=== PATIENT | male | born 1975 | race Caucasian/White ===

== ENCOUNTER 2025-02-06 16:34 | Inpatient (IN) | payer OTHER, SELFPAY ==
--- OUTSIDE RECORDS SUMMARY | 2025-02-01 11:49 | XMS_ITS | Encounter Summary ---
Author Organization Keisha Miguel [facility] Address [address] [place] [address] Care Team Providers Care Train Control Technician Name Role Phone Julio Prado MD Primary Care Provider + [phone] Sheldon Mercer MD Unavailable + [phone] Edwin Rojas MD Unavailable [phone] Reason for Visit * Reason Comments Hip Pain Encounter Details Date Type Department Care Team (Latest Contact Info) Description 02/01/2025 12:49 PM EDT - 02/01/2025 1:52 PM EDT Hospital Encounter [facility] [address] Johnie Horner MD [address] [place] [id number] Acute pain of left knee (Primary Dx) Discharge Disposition: Home or Self Care Social History Tobacco Use Types Packs/Day Years Used Date Smoking Tobacco: Never Smokeless Tobacco: Never Alcohol Use Standard Drinks/Week Comments Never 0 (1 standard drink = 0.6 oz pur e alcohol) Humiliation, Afraid, Rape, and Kick questionnair e Answer Date Recorded Within the last year, have y ou been afraid of your partner or ex-partner? Patient declined 02/01/2025 Emotionally Abused Not on file 02/01/2025 Physically Abused Not on file 02/01/2025 Sexually Abused Not on file 02/01/2025 Overall Financial Resource Strain (CARDIA) Answe r Date Recorded How hard is it for you to pa y for the very basics like food, housing, medical care, and heating? Patient declined 02/01/2025 Hunger Vital Sign Answer Date Recorded Within the past 12 months, y ou worried that your food would run out before you got the money to buy more. Patient declined Ran Out of Food in the Last Year Not on file 02/01/2025 PRAPARE - Transportation Answer Date Re corded In the past 12 months, has l ack of transportation kept you from medical appointments or from getting medications? Patient declined 02/01/2025 In the past 12 months, has l ack of transportation kept you from meetings, work, or from getting things needed for daily living? Patient declined 02/01/2025 Housing Stability Vital Sign Answer Mumtaz e Recorded In the last 12 months, was t here a time when you were not able to pay the mortgage or rent on time? Patient declined 02/02/20 25 Number of Times Moved in the Last Year Not on fi le 02/01/2025 [facility] or living in a usp (including now)? Patient declined 02/01/2025 [facility] Utilities Answer Date Recorded In the past 12 months has th e [employer], gas, oil, or water [employer] threatened to shut off services in your home? Patient declined 02/01/2025 Food Insecurity Answer Date Recorded Within the past 12 months, y ou worried that your food would run out before you got the money to buy more. Patient declined Ran Out of Food in the Last Year Not on file 02/01/2025 Intimate Partner Violence Answer Date R ecorded Emotionally Abused Not on file 02/01/2025 Within the last year, have y ou been afraid of your partner or ex-partner? Patient declined 02/01/2025 Physically Abused Not on file 02/01/2025 Sexually Abused Not on file 02/01/2025 Housing Stability Answer Date Recorded Unstable Housing in the Last Year Not on file 02/01/2025 In the last 12 months, was t here a time when you were not able to pay the mortgage or rent on time? Patient declined 02/02/20 25 Number of Places Lived in the Last Year Not on f ile 02/01/2025 Sex and Gender Information Value Date Recorded Sex Assigned at Male 08/19/2021 3:16 PM EDT Legal Sex Male 3:46 AM EST Gender Identity Male 08/19/2021 3:16 PM EDT Sexual Orientation Not on file documented as of this encounter Last Filed Vital Signs Vital Sign Reading Time Taken Comments Blood Pressure 156/97 02/01/2025 12:44 PM EDT Pulse 105 02/01/2025 12:44 PM EDT Temperature 35.8 C (96.5 F) 02/01/2025 12:44 PM EDT Respiratory Rate 20 02/01/2025 12:44 PM EDT Oxygen Saturation 97% 02/01/2025 12:44 PM EDT Inhaled Oxygen Concentration - - Weight - - Height - - Body Mass Index - - documented in this encounter Discharge Instructions * Discharge Instructions* Johnie Horner MD - 02/01/2025 1:02 PM EDT fungal infection of the feet is called tinea pedis. There are [id number] Azole formulationssuch as clotrimazole which if used for 2 to 3 weeks (use after areas go away) are very effective. [place] not see this rash but sometimes itching occurs before the the rash Tinea are very common result of warm moist environments so make sure to air dry feet and change wetsocks High rate of recurrence so if recurs start reusing Xrays show intact hardware of knee without fracture or loosening . For pain and swelling: take Ibuprofen 600mg every 6 hours (watch for stomach irritation, black/bloody stools; if present, stop taking and seek medical attention). Can also take tylenol every 4 hours. Ice for 20 minutes at a time every couple hours first 2-3 days after injury and then after aggravating activity. Elevate as much as possible first 2-3 days to minimize swelling. documented in this encounter Medications at Time of Discharge clotrimazole (LOTRIMIN AF) 1 % cream Apply to affected area (toes) 2 times daily 2815 g 02/01/2025 ibuprofen (MOTRIN) 600 MG tablet Take 1 tablet (600 mg total) by mouth every 6 hours as needed for pain or fever for up to 30 doses. 30 tablet 02/01/2025 ondansetron (ZOFRAN) 4 MG tablet Take 1 tablet (4 mg total) by mouth every 8 hours as needed for nausea. 5 tablet 06/03/2023 documented as of this encounter ED Notes * Catherine Ragland RN - 02/01/2025 12:42 PM EDT L hip pain pain - chronic. Pt cannot remember if he's had a recent injury * Johnie Horner MD - 02/01/2025 12:36 PM EDT Date of service: 02/01/2025 This is a Established Patient encounter. URGENT CARE ENCOUNTER CHIEF COMPLAINT Chief Complaint Patient presents with Hip Pain HPI Harsh Arciniega is a 49 y.o. male Pt with schizoaffective d/o and OA s/p L knee arthroplasty who presents with left knee pain. Patient very guarded with questions deflecting several times when asked if there is been a trauma and how long the pain has been present. Also concerned about toe fungus and possibly mold. He admits he travels around and stays overnight in lots of places . REVIEW OF SYSTEMS See HPI for further details. All other systems reviewed and are negative. PAST MEDICAL HISTORY Past Medical History: No date: Anxiety 05/29/2020: Closed displaced bicondylar fracture of left tibia No date: COVID-19 06/07/2020: Osteoarthritis of left knee SOCIAL HISTORY Social History[1] FAMILY HISTORY Family History[2] SURGICAL HISTORY Past Surgical History[3] CURRENT MEDICATIONS Patient Medication List Previous Medications ONDANSETRON (ZOFRAN) 4 MG TABLET ALLERGIES Allergies[4] PHYSICAL EXAM VITAL SIGNS: ED Triage Vitals [02/01/25 1244] Triage Vitals Group BP (!) 156/97 Heart Rate (!) 105 Resp 20 Temp (!) 96.5 ??F (35.8 ??C) SpO2 97 % Weight Height 0-10 Pain Score 10 Mcghee-Terrazas FACES Pain Rating Constitutional: 49-year-old male very guardedhead: NC/AT Eyes: Pupils equal, conjunctiva normal. HENT: Atraumatic, oropharynx moist. Neck supple. Respiratory: No respiratory distress, normal breath sounds. Cardiovascular: Normal rate, normal rhythm, no murmurs, no gallops, no rubs. Musculoskeletal: Left knee: Vertical scar consistent with total knee replacement. Able to extend lower leg. Valgus varus stable. Minimal joint line tenderness. No skin changes. Bilateral feet dry skin no obvious tinea. Skin: Warm, dry Neurologic: Alert; conversant no focal deficits. RADIOLOGY XR Knee 3 VW Left Result Date: 02/01/2025 EXAM DESCRIPTION: XR KNEE 3 VW LEFT CLINICAL HISTORY: 49 y/o M hx arthroplasty with pain unclear iftrauma; COMPARISON: None. TECHNIQUE: AP, lateral and axial views of the left knee were taken. FINDINGS: There is a total knee arthroplasty. No perihardware lucency or periprosthetic fracture is identified at this time. No significant joint effusion. Total knee arthroplasty without evidence of hardware complication by radiograph. INCIDENTAL FINDINGS WHICH MAY REQUIRE FOLLOW-UP: None. Contemporaneously viewed ED COURSE & MEDICAL DECISION MAKING Pertinent Labs and/or Imaging studies reviewed. (See chart for details) Nsaids. Clinical Impression 1. Acute pain of left knee ED Disposition ED Disposition Discharge Condition -- Comment -- ED Prescriptions Medication Sig Dispense Start Date End Date Auth. Provider ibuprofen (MOTRIN) 600 MG tablet Take 1 tablet (600 mg total) by mouth every 6 hours as needed for pain or fever for up to 30 doses. 30 tablet 02/01/2025 -- Johnie Jose Luis Horner MD clotrimazole (LOTRIMIN AF) 1 % cream Apply to affected area (toes) 2 times daily 2,815 g 02/01/2025-- Johnie Jose Luis Horner MD ED Discharge Instructions fungal infection of the feet is called tinea pedis. There are zfjd-lmx-eiqnjrp Azole formulationssuch as clotrimazole which if used for 2 to 3 weeks (use after areas go away) are very effective. [place] not see this rash but sometimes itching occurs before the the rash Tinea are very common result of warm moist environments so make sure to air dry feet and change wetsocks High rate of recurrence so if recurs start reusing Xrays show intact hardware of knee without fracture or loosening . For pain and swelling: take Ibuprofen 600mg every 6 hours (watch for stomach irritation, black/bloody stools; if present, stop taking and seek medical attention). Can also take tylenol every 4 hours. Ice for 20 minutes at a time every couple hours first 2-3 days after injury and then after aggravating activity. Elevate as much as possible first 2-3 days to minimize swelling. [1] Social History Socioeconomic History Marital status: Single Tobacco Use Smoking status: Never Smokeless tobacco: Never Vaping Use Vaping status: Never Used Substance and Sexual Activity Alcohol use: Never Drug use: Never Sexual activity: Yes Partners: Female [2] Family History Problem Relation Name Age of Onset Coronary artery disease Mother Coronary artery disease Father [3] Past Surgical History: Procedure Laterality Date REPLACEMENT TOTAL KNEE Left 2020 COLONOSCOPY N/A 06/30/2022 Surgeon: Julien Shane MD; Location: [facility] [place]; Service: Gastroenterology; Laterality: N/A; [4] No Known Allergies Johnie Horner MD 02/01/25 1347 documented in this encounter Plan of Treatment Not on file documented as of this encounter Procedures Procedure Name Priority Date/Time Associated Diagnosis Comments XR KNEE 3 VW LEFT STAT 02/01/2025 1:1 2 PM EDT documented in this encounter Results * XR Knee 3 VW Left (02/01/2025 1:12 PM EDT) Anatomical Region Laterality Modality Knee Left Digital Radiogra phy 02/01/2025 1:22 PM EDT Impressions 02/01/2025 1:23 PM EDT Total knee arthroplasty without evidence of hardware complication by radiograph. INCIDENTAL FINDINGS WHICH MAY REQUIRE FOLLOW-UP: None. Narrative 02/01/2025 1:23 PM EDT EXAM DESCRIPTION: XR KNEE 3 VW LEFT CLINICAL HISTORY: 49 y/o M hx arthroplasty with pain unclear if trauma; COMPARISON: None. TECHNIQUE: AP, lateral and axial views of the left knee were taken. FINDINGS: There is a total knee arthroplasty. No perihardware lucency or periprosthetic fracture is identified at this time. No significant joint effusion. Procedure Note Felix Burr DO - 02/01/2025 EXAM DESCRIPTION: XR KNEE 3 VW LEFT CLINICAL HISTORY: 49 y/o M hx arthroplasty with pain unclear if trauma; COMPARISON: None. TECHNIQUE: AP, lateral and axial views of the left knee were taken. FINDINGS: There is a total knee arthroplasty. No perihardware lucency or periprosthetic fracture is identified at this time. No significant joint effusion. IMPRESSION: Total knee arthroplasty without evidence of hardware complication by radiograph. INCIDENTAL FINDINGS WHICH MAY REQUIRE FOLLOW-UP: None. us Johnie Horner MD IMG DIAGNOSTIC IMAGING ORDERAB LES Final Result documented in this encounter Visit Diagnoses Diagnosis Acute pain of left knee- Primary documented in this encounter Care Teams Train Control Technician Relationship Specialty Start Date End Date Julio Prado MD [facility] [address] [facility] ~ [address] [place] [address] PCP - General Internal Medicine 03/18/23 Edwin Rojas MD [facility] [address] [place] [id number] PCP - Insurance Assigned PCP 02/01/25 Sheldon Mercer MD [facility] [address] ~ [address] [place] [address] Referring Physician Colorectal Surgery 03/31/23 documented as of this encounter
--- OUTSIDE RECORDS SUMMARY | 2025-02-01 14:28 | XMS_ITS | Encounter Summary ---
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 Medications: Scheduled Medications[2] Current PRN: PRN Medications[3] Allergies: Patient has no known allergies. Substance Use History Alcohol: Substance and Sexual Activity Alcohol Use Never In the past 12 months,have you had 5 or more drinks(men)/4 or more drinks (women) containing alcohol in one day?: No Tobacco: reports that he has never smoked. He has never used smokeless tobacco. E-Cigarettes/Vaping Questions Responses E-Cigarette/Vaping Use Never User Passive Exposure No Other: reports no history of drug use. Prescription Medications: In the past 12 months,have you used any prescription medications just for the feeling, more than prescribed or that were no prescribed for you?: No Substances: In the past 12 months, have you used any drugs?: Yes Drugs used:: Marijuana Medical and Psychiatric Consequences: Psychosocial Consequences: Social History: The patient has an address in [place], although has a hx of traveling around and staysovernight in lots of places . It is unclear if the patient has family, or if he currently works. Socioeconomic History Marital status: Single Employment Status: Not Employed Type of Residence: Private residence Children?: (Unable to assess) History: History [place] status: No Personal History: reports being sexually active and has had partner(s) who are female. Family History: Family History[4] Family history of psychiatric illness?: (Unable to assess) Family history of CASI?: (Unable to assess) Family history of suicidal ideation, attempt or completed suicide?: (Unable to assess) Physical Exam: Patient Vitals for the past 24 hrs: BP Temp Temp src Pulse Resp SpO2 Height Weight 02/01/25 2053 128/86 98.4 ??F (36.9 ??C) Oral 89 16 97 % -- -- 02/01/25 1534 (!) 172/91 98.6 ??F (37 ??C) -- (!) 97 17 98 % 1.829 m (6') (!) 120 kg (265 lb) Mental Status Exam: Mental Status Exam General Appearance: Appears stated age. Disheveled and mild distress. Orientation: Oriented to person, place, time and situation. Attitude and Behavior: Disengaged and guarded. Eye Contact: Eye contact poor. Language: Unable to assess. Thought Process and Associations: Disorganized. Incoherent: constricted. Thought Content: No suicidal ideation, no self-injurious ideation, no homicidal ideation and not actively hallucinating. Attention Span: Poor. Memory: Impaired recall. Fund of Knowledge: Decreased knowledge of current events and decreased knowledge of recent events. Cognition: Unable to assess. Insight: Poor. Judgment: Poor and resists help despite evidence of mental illness. Labs, Imaging & Other Studies: Laboratory: Recent lab results have been reviewed and are notable for Results for orders placed or performed during the hospital encounter of 02/01/25 (from the past 24 hours) Drug Screen, Urine Result Value Ref Range Amphetamines Screen, Urine Negative Negative Barbiturates Screen, Urine Negative Negative Benzodiazepine Screen, Urine Negative Negative Buprenorphine Screen, Urine Negative Negative Cannabinoids Screen, Urine Positive (A) Negative Cocaine Metabolite Screen, Urine Negative Negative Methadone Screen, Urine Negative Negative Methamphetamine, Urine Negative Negative Opiates Screen, Urine Negative Negative Oxycodone Screen, Urine Negative Negative TCA, Urine Negative Negative Creatinine, Ramirez Urine 33.1 No Established Reference Range mg/dL Fentanyl Screen, Urine Negative Negative Tramadol Screen, Urine Negative Negative 6-Aceytlmorphine Screen, Urine Negative Negative Phencyclidine Screen, Urine Negative Negative Fentanyl Screen, Urine Result Value Ref Range Fentanyl Screen, Urine Negative Negative Tramadol Screen, Urine Result Value Ref Range Tramadol Screen, Urine Negative Negative 6-Acetylmorphine Screen, Urine Result Value Ref Range 6-Aceytlmorphine Screen, Urine Negative Negative Basic Metabolic Panel Result Value Ref Range Sodium 141 134 - 144 mmol/L Potassium 4.6 3.2 - 5.1 mmol/L Chloride 104 97 - 109 mmol/L Total CO2/Bicarbonate 24 20 - 32 mmol/L Anion Gap 13 5 - 15 mmol/L Anion Gap BUN 18 9 - 26 mg/dL Creatinine, Blood 0.78 0.70 - 1.30 mg/dL Glucose, Blood 84 70 - 110 mg/dL Calcium 9.5 8.5 - 10.5 mg/dL Estimated GFR(CKD-EPI) 108 >=60 mL/min/BSA Plasma Toxicology Screen Result Value Ref Range Acetaminophen Result,Blood <3 (L) Therapuetic Range 10-30 ug/mL Alcohol <10 <10 mg/dL Salicylate Level, Blood <5 (L) 15 - <30 mg/dL CBC and Differential Result Value Ref Range WBC 11.59 (H) 4.00 - 11.00 K/uL RBC 4.42 4.10 - 5.60 M/uL Hemoglobin 14.4 12.7 - 16.7 g/dL Hematocrit 42.7 38.0 - 50.0 % MCH 32.6 23.0 - 37.0 pg MCHC 33.7 29.0 - 38.0 g/dL MCV 97 82 - 98 fL RDW 12.6 11.5 - 15.0 % Platelet Count 246 150 - 450 K/uL MPV 10.9 8.0 - 14.0 fL Neutrophil 71.7 % Lymphocyte 18.7 % Monocyte 8.8 % Eosinophil 0.2 % Basophil 0.3 % Immature Granulocyte (Osgood, Myelo, Promyelocyte) 0.3 % Absolute Neutrophil Count 8.31 (H) 1.50 - 7.70 K/uL Absolute Immature Granulocyte (Osgood, Myelo, Promyelocyte) 0.04 0.00 - 0.09 K/uL Absolute Lymphocyte Count 2.17 1.00 - 5.00 K/uL Absolute Monocyte Count 1.02 (H) 0.10 - 1.00 K/uL Absolute Eosinophil Count 0.02 0.00 - 0.70 K/uL Absolute Basophil Count 0.03 0.00 - 0.20 K/uL EKG: No studies were reviewed. C-SSRS Screener and SAFE-T: [place] Suicide Severity Rating Scale (C-SSRS) Screener 1) In the past month, have you wished you were or wished you could go to sleep and not wake up?: (Unable to assess) 2) In the past month, have you actually had any thoughts of killing yourself?: (Unable to assess) 6a.) Have you ever done anything, started to do anything, or prepared to do anything to end your life?: (Unable to assess) History of Psychiatric Diagnosis:: Unable to assess Family History: Unable to assess Precipitants/ Stressors/ Interpersonal: Unable to assess Change in Treatment: Unable to assess Access to lethal methods: Ask specifically about presence or absence of a firearm in the home or ease of accessing: Unable to assess Management of Suicide Risk: Because the patient is unwilling to maintain his/her safety in the community and the risks of treatment in the community outweighs its benefits, the patient will be further assessed for psychiatric inpatient level of care Assessment: Patient is a 49 y.o. male with past medical and psychiatric history as above now presents with impaired insight and judgement, patient had made disorganized statements with tangential thought process. Patient had initially asked to be discharged, but when asked his plan, the patient did not make logical statements and had plans to walk to [place]. It is unclear how the patient got to [place], although in the patients past hx, it does report he has a hx of jumping from place to place- and the patient was soaking wet, in a scuba suit, when he arrived [facility] via EMS from [facility]. This clinician was unable to assess if the patient has any current outpatient providers such as a therapist or med prescriber, family hx of mental health or substance use, or trauma hx. The patient was just at [facility] in [place] and was there from January 22 to January 31, he was held on an IEA (involuntary emergency admissions) which is equivalent to a [place] Section 12. Although, he was never transferred to a formal psychiatric facility. It is unclear if the patient has a past hx of inpatient admissions. The patient does have an address in [place], but as stated above, it is unclear if he is still currently living there, or if he is considered homeless due to travelling around and staying lots of places . The patient did test positive for Cannabinoids, no alcohol waspresent. Upon evaluation, the patient is alert and oriented x4, of stated age, disheveled and slightly malodorous. The patient sits up abruptly on his stretcher, when this clinician asks how the patient is, he states, I am hungry, I am tired, and my throat hurts . This clinician notified the patient that Iwould bring this up to the nurse. While this clinician was introducing self, the patient said that he would not further communicate, unless he had a professor of business present. The patient was educated on the process and that we would not provide a professor of business, nor were we obligated to have a professor of business present. The patient immediately laid back down, reported that he needed on and that he did not want to engage any further. At that point, due to verbal agitation on the overnight shift, this clinician exited the room. The patient has continued to agree to engage with this clinician, thus, it has been difficult toobtain information and assess mental status. In nursing report, it was mentioned that the patient had verbal agitation, as well as making delusional statements, displaying odd behaviors and reportingthat Carlos Rock was watching through the cameras . The patient was just at [facility] in [place], for concern of odd behaviors and delusional statements. This clinician attempted to speak with patients [id number], Jeet Telles, although he did notanswer and his VM was full. Due to the patients recent odd behaviors, wandering around, inability to reality test, and concern for delusional statements, the patient poses as a potential safety concern and should be evaluated further for concern of psychosis/delusional thought content. The patient would benefit from transfer to an inpatient facility for further diagnostic clarification, and stabilization. The patient meets criteria for a section 12. This was discussed with [facility] LORI Bolaños, Yonny Adhikari MD and Maximilian Durham MD who support disposition. . Recommendations: IPLOC Intervention and Stabilization Services Requested: Disposition Recommendation: Patient meets criteria for opioid use disorder (OUD): No Behavioral Health Diagnosis: F22 Delusional disorder Duration: Time Spent (min): 120 Discussed with [employer]: Yes, [employer] Name: Santiago Edwards [facility] Discussed with Medical Team: Yes . Yonny Adhikari MD and Maximilian Durham MD Signed by: Kathy Garza LCSW [1] (Not in a hospital admission) [2] haloperidoL, 15 mg, Oral, QHS LORazepam, 2 mg, Oral, QHS [3] nicotine polacrilex [4] Family History Problem Relation Name Age of Onset Coronary artery disease Mother Coronary artery disease Father documented in this encounter ED Notes * Claudia Hurtado RN - 02/05/2025 9:49 PM EST Patient describing mood as wonderful this evening. A &ox 3. Patient telling multiple staff how beautiful they are. Patient cleaning floor with toothbrush and then trying to clean toes in toiletand asking if the doctor can look at a nodule on his leg- on his leg not his nuts! Patient compliant with medications, chewing them all once and then swishing them with water in his mouth and then swallowing them. * Claudia Hurtado RN - 02/05/2025 7:19 PM EST Patient in room having a visitor. * Indiana Johnson RN - 02/05/2025 4:48 PM EST This RN assumed care of pt. Meal tray ordered. Monitoring by security ongoing. * Janneth Chanel RN - 02/04/2025 11:27 PM EST Assumed care of pt. This Rn to bedside. Pt resting with eyes closed, respirations equal and unlabored. 18 Respirations per minute. Security remains in watch. * Kelley Hsieh RN - 02/04/2025 8:20 AM EST Pt resting quietly. Allowed this RN to take VS. Calm, pleasant, interactive. Up to BR to void. Security watch maintained. Breakfast ordered. Pt asking for nicorette gum and ibuprofen for his chronic hip pain. Given both. * Katherine Carlos RN - 02/03/2025 4:56 PM EDT Evaluation completed by telepsych, bed search. Patient concerned that his belongings are moldy and that hospital has mold on ceilings, reassured patient. * Katherine Carlos RN - 02/03/2025 11:54 AM EDT Resting comfortably in room, anxious at times, able to redirect. Agreed to telepsych then changed mind stating he does not like speaking on tablet and will wait until he can talk face to face. Visit from friend was helpful in being more relaxed. * Mary Bansal RN - 02/02/2025 3:29 PM EDT Assumed care of pt at 1500. Patient standing in room watching TV at this time, calm and in behavioral control. Nicorette gum given per pt request and PRN order, see MAR. Dinner tray ordered. Pt has no further questions at this time, security watch remains in place for patient safety * eMagan Tuttle RN - 02/02/2025 11:50 AM EDT Pt resting in stretcher, eating lunch tray. Security remains at bedside for safety watch. * Hossein Garcia RN - 02/02/2025 10:14 AM EDT Rounded pt. Pt in ED stretcher lying in his left side. VS updated and documented. Pt requesting states he ate breakfast but it is not enough for him, pt requesting more food states More volume and more delicious . This RN informed pt that we can check what's on the menu. Verbalized understanding and thankful. Remains behaviorally controlled at this time. * Hossein Garcia RN - 02/02/2025 7:18 AM EDT Report received from BRANDON Lagunas. This RN assumes care at this time. * Janneth Chanel RN - 02/02/2025 6:04 AM EDT Pt declining PO Haldol and Ativan. Requesting Nicorette gum. Given by this RN. * Erica Adams RN - 02/02/2025 5:30 AM EDT This RN called to bedside. Pt stating I want to leave. I need help. [place]. This RN explained pt has been placed under a section 12 for safety and cannot leave until evaluated by . Pt was offered multiple times and declined. Pt stated I do not want to meet [employer]. I want to talk to an actual person. This RN explained understanding and he would have to wait until clinician comes in this morning. Pt stated Call 911. Call a professor of business. You are taking away my personal rights. This RN explained section 12 again. Pt continued to repeat previous statement, but makes no move to leave facility. Pt rested allison in stretcher and stated I am not talkingto you. I will talk to a professor of business. Pt moved to rm 26 incase of elopement. MD Vargas at bedside. New orders established. Pt whistling loudly, but otherwise remains in room. * Naomi Hartmann RN - 02/01/2025 10:45 PM EDT Pt refused ipad psych eval stating no thanks and rolled over in bed. Psych team and MATTHIAS Dye notified. * Naomi Hartmann RN - 02/01/2025 10:27 PM EDT Marnie RIZZO to offer pt psych evaluation via iPad. Per PA pt stated You can set it up but I won't say anything to them. This RN secure chatted behavior health. Awaiting code. Pt remains in behavior health at this time. * Naomi Hartmann RN - 02/01/2025 7:44 PM EDT Assumed care of pt. Pt moved to W30 bed due to pt's concern regarding air quality from air vent. Ptnow resting comfortably. Continued security watch. Pt asked for additional Nicorette. Pt will be offered PRN Nicorette. * Radha Meadows RN - 02/01/2025 6:48 PM EDT Patient refusing to sit in stretcher, refusing to be eval'd. CHART PICKER at bedside. Now S12. Requesting a room- charge nurse denied request. * Radha Meadows RN - 02/01/2025 3:37 PM EDT Meds placed in the pyxsis Clotrimazole 1% cream x1 Motrin 600mg bottle unopened x1 * Radha Meadows RN - 02/01/2025 3:31 PM EDT EMS from [facility] requesting an eval. Hx of schizophrenia. Was seen at [facility] earlier today for chronic hip pain. Denies SI/HI/AH/VH. * Salvador Alfonso MD - 02/01/2025 3:28 PM EDT Date of service: 02/01/2025 [facility] EMERGENCY dEPARTMENT eNCOUnter NURSING TRIAGE NOTE Triage Notes Radha Meadows RN 02/01/2025 3:33 PM EMS from [facility] requesting an eval. Hx of schizophrenia. Was seen at [facility] earlier today for chronic hip pain. Denies SI/HI/AH/VH. Triage Notes Reviewed by Provider: Aspen Brower MD 255:47 PM Previous Medical Records Reviewed: Yes History Obtained From: patient CHIEF COMPLAINT Chief Complaint Patient presents with Behavioral Health HPI Onset: Gradual Severity: Moderate Timing: Days Associated Symptoms: disorganized speech Pertinent negatives: fever, SI/HI Harsh Arciniega is a 49 y.o. male with history of schizoaffective disorder, anxiety who presents to the emergency department for behavioral health evaluation. Patient generally tangential with his speech and difficult to elicit history from. When asked patient what brings him in today patient states that he wants to be seen . When asked if he has thoughts of suicidality or homicidality he denies. He denies substance use. He denies medical concerns. Patient states he is going to walk to [place] and requesting discharge. REVIEW OF SYSTEMS Review of Systems Reason unable to perform ROS: HPI limited given current psychiatric status. Constitutional: Negative for fever. Respiratory: Negative for shortness of breath. Cardiovascular: Negative for chest pain. Psychiatric/Behavioral: Negative for suicidal ideas. The patient is nervous/anxious. All other systems reviewed and are negative. See HPI for further details. All other systems reviewed and are negative. MEDICAL HISTORY Past Medical History[1] SURGICAL HISTORY Past Surgical History[2] SOCIAL HISTORY Social History[3] CURRENT MEDICATIONS Patient Medication List Previous Medications CLOTRIMAZOLE (LOTRIMIN AF) 1 % CREAM IBUPROFEN (MOTRIN) 600 MG TABLET ONDANSETRON (ZOFRAN) 4 MG TABLET ALLERGIES Allergies[4] PHYSICAL EXAM VITAL SIGNS: ED Triage Vitals Triage Vitals Group BP 02/01/25 1534 (!) 172/91 Heart Rate 02/01/25 1534 (!) 97 Resp 02/01/25 1534 17 Temp 02/01/25 1534 98.6 ??F (37 ??C) SpO2 02/01/25 1534 98 % Actual Weight 02/01/25 1534 (!) 120 kg (265 lb) Height 02/01/25 1534 1.829 m (6') 0-10 Pain Score 02/01/25 1557 7 Mcghee-Terrazas FACES Pain Rating -- Physical Exam Vitals reviewed. Constitutional: General: He is not in acute distress. HENT: Head: Normocephalic and atraumatic. Mouth/Throat: Mouth: Mucous membranes are moist. Eyes: Extraocular Movements: Extraocular movements intact. Conjunctiva/sclera: Conjunctivae normal. Pupils: Pupils are equal, round, and reactive to light. Cardiovascular: Rate and Rhythm: Normal rate and regular rhythm. Pulmonary: Effort: Pulmonary effort is normal. Abdominal: Palpations: Abdomen is soft. Musculoskeletal: General: Normal range of motion. Cervical back: Normal range of motion. No rigidity or tenderness. Skin: General: Skin is warm. Capillary Refill: Capillary refill takes less than 2 seconds. Neurological: General: No focal deficit present. Mental Status: He is alert. Comments: Patient is oriented to person, place, situation, time and year Psychiatric: Comments: Patient speech is tangential and at times pressured. He is making paranoid statements regarding the air vents and iPad behavioral health evaluation. Mood is labile. RADIOLOGY Images visualized by me RADIOLOGY: No orders to display LABS Labs reviewed by me LABS: No results found for this or any previous visit (from the past 24 hours). PROCEDURES Procedures ED COURSE/PROCEDURES/ASSESSMENT Patient is a 49 y.o. male who is presenting to the emergency department today for evaluation. In the emergency department patient is afebrile, alert, does appear to be paranoid and with labile mood however he is not acutely distressed. Examination is as above. The above workup was obtained. CBC with mild leukocytosis otherwise unremarkable. BMP is within normal limits. Plasma toxicology screen is negative. Urine drug screen positive for cannabinoids. Patient initially was not placed under section 12 as he was here voluntarily and did not have any suicidality or homicidality. His condition appeared to decompensate and he is requesting to leave. When asked what his discharge plan would be patient states Im walking to [place] and Call Adrian Telles . I attempted to contact Adrian however he did not answer. I then discussed with patient that this did not appear to be a safe plan and he remarks tangentially requesting bananas as he occasionally gets leg cramps. Ultimately I felt that patient had impaired judgment, poor insight, and ability to safety contract and he was placed under section 12. We did attempt to have him evaluated by behavioral health however he continues to decline evaluation on iPad. Plan will be to board patient until he can be seen in person in the morning. At the completion of my shift case will be signed out to overnight attending Dr. Vargas. Security watch and section [address]. ED Course as of 02/03/25 1747 Julee Feb 01, 2025 [id number] The patient's care was escalated to observation status at 11:20 PM on 02/01/25. Observation was necessary for serial behavioral health assessments related to schizoaffective disorder/difficulty mynor for safety [NM] ED Course User Index [NM] MATTHIAS Lim Clinical Impression 1. Schizoaffective disorder, unspecified type (CMS-HCC) [F25.9] 2. Delusion (CMS-HCC) [F22] ED Prescriptions None ED Disposition ED Disposition ED Observation Condition -- Comment -- MDM: Consideration for admission: Disposition will depend on behavioral health evaluation Diagnostic Tests Considered but not performed: CT Head and CT Cspine Diagnostic Tests Considered but not performed Comments: No fall or trauma Care Affected by Social Determinants of Health: Lack of transportation MATTHIAS Lim 02/02/25 0042 The patient was signed out to me at change of shift by my colleague, Dr. Adhikari. He has been calm today but will not engage with the crisis team. As such, they have initiated an inpatient bed search. Maximilian Durham MD 02/02/25 1734 The patient was signed out to me by Dr. Durham and was re-evaluated at 5:47 PM on 02/03/25. They are Calm, NAD on exam. Still awaiting inpatient psychiatric bed availability. Care of patient transferred to [facility] ED physician Dr. Adhikari pending inpatient bed search. Aspen Brower MD 02/03/[address] [facility]. EKG is normal. He appears comfortable and stable at this time. My final assessment includes that the patient continues to require an inpatient level of care for their psychiatric needs and will be escalated to hospitalization. The patient was discharged from observation status at 11:54 AM on 02/06/25. Section 12 and transfer paperwork completed. The patient is aware of the plan. ED Course as of 02/06/25 1315 Julee Feb 01, [id number] The patient's care was escalated to observation status at 11:20 PM on 02/01/25. Observation was necessary for serial behavioral health assessments related to schizoaffective disorder/difficulty mynor for safety [NM] ED Course User Index [NM] MATTHIAS Lim Clinical Impression 1. Schizoaffective disorder, unspecified type (CMS-HCC) [F25.9] 2. Delusion (CMS-HCC) [F22] 3. Schizoaffective disorder, unspecified type (CMS-HCC) ED Disposition ED Disposition Transfer to [facility] Facility Condition -- Comment -- [1] Past Medical History: Diagnosis Date Anxiety Closed displaced bicondylar fracture of left tibia 05/29/2020 COVID-19 Osteoarthritis of left knee 06/07/2020 [2] Past Surgical History: Procedure Laterality Date REPLACEMENT TOTAL KNEE Left 2020 COLONOSCOPY N/A 06/30/2022 Surgeon: Julien Shane MD; Location: [facility]; Service: Gastroenterology; Laterality: N/A; [3] Social History Socioeconomic History Marital status: Single Tobacco Use Smoking status: Never Smokeless tobacco: Never Vaping Use Vaping status: Never Used Substance and Sexual Activity Alcohol use: Never Drug use: Never Sexual activity: Yes Partners: Female [4] No Known Allergies Salvador Alfonso MD 02/06/25 1315 documented in this encounter Miscellaneous Notes * Care Coordination Note - Ban Sousa [facility] - 02/05/2025 7:18 PM EST Patient has friend, Ban Ragsdaleynes [phone], at [facility]. Patient allows this production underwriter to speak privately with Ban. Ban reports patient has a history of Schizophrenia, he has been off medications for about 2yrs. They have known each other since marketing development specialist, their parents were best friends. Patient did well previously, very high functioning, when taking antipsychotics -- did especially well with Abilify.For no clear reason he stopped taking all meds about 2yrs ago. He has had previous episodes ending up in the ED. In the last 2 months she has seen him acutely decompensated, highly delusional, grandiose, presenting as manic, illogical, erratic. He has walked long distances including across state lines from [place] where he lives. She observes patient is not at his baseline, feels he needs stabilization inpatient at this time. She is willing to be primary contact for patient. She resides in [place], [place], she will visit with patient and support him while he is inpatient. She reports he used to have care through the [facility] in [place], [place] We return to meet with patient together. Patient reports he prefers Ban be his primary contactand not bro inlaw. He asks appropriate questions about his care such as when he might be transferred and to what hospital. 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 They're a beautiful family, very beautiful, they know me, my name's Harsh . * Psych Progress Note - Theron Godinez - 02/04/2025 11:19 PM EST Behavioral Health Crisis Consult- Contact Note Patient: Harsh Arciniega : 1975 Admit Date: 02/01/2025 Date of Consult: 02/04/2025 Time of Consult: 11:19 PM Narrative: PACKET UPLOADED TO P[facility] * Care Coordination Note - LORI Callejas - 02/02/2025 5:23 PM EDT Expanded bed search to [facility] * Psych Progress Note - XENA Slaughter - 02/01/2025 11:06 PM EDT The patient was called in for a second crisis evaluation. An attempt was made to meet with him via telehealth; however, he declined the evaluation. The Central triage team was notified and the patient's nurse (Naomi) was advised to call back when he is ready to engage. * Psych Progress Note - XENA Slaughter - 02/01/2025 6:52 PM EDT The clinician met with the patient via telehealth. The patient declined the evaluation. Per nurse Garcia, the patient is not on a Section 12 and will be discharged. documented in this encounter Plan of Treatment Not on file documented as of this encounter Procedures Procedure Name Priority Date/Time Associated Diagnosis Comments ECG 12-LEAD STAT 02/06/2025 11:49 AM EST CBC AND DIFFERENTIAL STAT 02/01/2025 3:54 PM EDT TOXICOLOGY SCREEN, BLOOD STAT 02/01/2025 3:54 PM EDT CBC AND DIFFERENTIAL STAT 02/01/2025 3:54 PM EDT BASIC METABOLIC PANEL STAT 02/01/2025 3:54 PM EDT 6-ACETYLMORPHINE SCREEN, URINE STAT 02/01/2025 3:45 PM EDT DRUG SCREEN, URINE STAT 02/01/2025 3: 45 PM EDT TRAMADOL SCREEN, URINE STAT 02/01/2025 3:45 PM EDT FENTANYL SCREEN, URINE STAT 02/01/2025 3:45 PM EDT documented in this encounter Results * ECG 12 lead, to be obtained, other indication (02/06/2025 11:49 AM EST) [facility] Ventricular Heart Rate 72 BPM EKG WIN Atrial Heart Rate 72 BPM EKG WIN NE Interval 140 ms EKG WIN QRSD Interval 102 ms EKG WIN QT Interval 390 ms EKG WIN QTC Interval 427 ms EKG WIN P [place] 63 degrees EKG WIN R [place] 21 degrees EKG WIN T Wave [place] 46 degrees EKG WIN 02/06/2025 11:4 9 AM EST 02/06/2025 4:59 PM EST Narrative EKG WIN - 02/06/2025 4:59 PM EST Normal sinus rhythm Normal ECG No previous ECGs available Confirmed by Neymar Ramos ([id number]) on 02/06/2025 4:59:42 PM Procedure Note Neymar Ramos MD - 02/06/2025 Normal sinus rhythm Normal ECG No previous ECGs available Confirmed by Neymar Ramos ([id number]) on 02/06/2025 4:59:42 PM us Salvador Alfonso MD ECG ORDERABLES Final Result EKG WIN [address] [place] [address] * (ABNORMAL) CBC and Differential (02/01/2025 3:54 PM EDT) WBC 11.59(H) 4.00 - 11.00 K/uL 02/01/2025 4:01 PM EDT [facility] RBC 4.42 4.10 - 5.60 M/uL 02/01/2025 4:01 PM EDT [facility] Hemoglobin 14.4 12.7 - 16.7 g/dL 02/01/2025 4:01 PM EDT [facility] Hematocrit 42.7 38.0 - 50.0 % 02/01/2025 4:01 PM EDT [facility] MCH 32.6 23.0 - 37.0 pg 02/01/2025 4:01 PM EDT [facility] MCHC 33.7 29.0 - 38.0 g/dL 02/01/2025 4:01 PM EDT [facility] MCV 97 82 - 98 fL 02/01/2025 4:01 PM EDT [facility] RDW 12.6 11.5 - 15.0 % 02/01/2025 4:01 PM EDT [facility] Platelet Count 246 150 - 450 K/uL 02/01/2025 4:01 PM EDT [facility] MPV 10.9 8.0 - 14.0 fL 02/01/2025 4:01 PM EDT [facility] Neutrophil 71.7 % 02/01/2025 4:01 PM EDT [facility] Lymphocyte 18.7 % [facility] Monocyte 8.8 % 02/01/2025 4:01 PM EDT [facility] Eosinophil 0.2 % 02/01/2025 4:01 PM [facility] Basophil 0.3 % 02/01/2025 4:01 PM [facility] Immature Granulocyte (Osgood, Myelo, Promyelocyte) 0.3 % 02/01/2025 4:01 PM [facility] Absolute Neutrophil Count 8.31(H) 1.50 - 7.70 K/uL 02/01/2025 4:01 PM [facility] Absolute Immature Granulocyte (Osgood, Myelo, Promyelocyte) 0.04 0.00 - 0.09 K/uL 02/01/2025 4:[facility] Absolute Lymphocyte Count 2.17 1.00 - 5.00 K/uL 02/01/2025 4:01 PM [facility] Absolute Monocyte Count 1.02(H) 0.10 - 1.00 K/uL 02/01/2025 4:01 PM [facility] Absolute Eosinophil Count 0.02 0.00 - 0.70 K/uL 02/01/2025 4:01 PM [facility] Absolute Basophil Count 0.03 0.00 - 0.20 K/uL 02/01/2025 4:01 PM [facility] Blood PERIPHERAL BLOOD SPECIMEN / Unknown Venipuncture / Unknown 02/01/2025 3:54 PM EDT 02/01/2025 3:57 PM EDT us Dakota Vargas MD LAB BLOOD ORDERABLES Final Re sult [facility] [address] [place] [address], * (ABNORMAL) Plasma Toxicology Screen (02/01/2025 3:54 PM EDT) Acetaminophen Result,Blood <3(L) Therapuetic Range 10-30 ug/mL [address] 02/01/2025 4:37 PM EDT [facility] Alcohol <10 <10 mg/dL [address] 02/01/2025 4:37 PM EDT [facility] Salicylate Level, Blood <5(L) 15 - <30 mg/dL [address] 02/01/2025 4:37 PM EDT [facility] Blood PERIPHERAL BLOOD SPECIMEN / Unknown Venipuncture / Unknown 02/01/2025 3:54 PM EDT 02/01/2025 3:57 PM EDT us Dakota Vargas MD LAB BLOOD ORDERABLES Final Re sult [facility] [address] [place] [address], * Basic Metabolic Panel (02/01/2025 3:54 PM EDT) Sodium 141 134 - 144 mmol/L [address] 02/01/2025 4:37 PM EDT [facility] Potassium 4.6 3.2 - 5.1 mmol/L [address] 02/01/2025 4:37 PM EDT [facility] Comment:Samples tested in se rum may exhibit a higher potassium value than those tested on plasma. Our current range is based on plasma testing. Chloride 104 97 - 109 mmol/L [address] 02/01/2025 4:37 PM EDT [facility] Total CO2/Bicarbonat e 24 20 - 32 mmol/L [address] 02/01/2025 4:37 PM EDT [facility] Anion Gap 13 5 - 15 mmol/L [address] 02/01/2025 4:37 PM EDT [facility] Anion Gap [address] 02/01/2025 4:37 PM EDT [facility] BUN 18 9 - 26 mg/dL [address] 02/01/2025 4:37 PM EDT [facility] Creatinine, Blood 0.78 0.70 - 1.30 mg/dL [address] 02/01/2025 4:37 PM EDT [facility] Glucose, Blood 84 70 - 110 mg/dL [place] [id number] 02/01/2025 4:37 PM EDT [facility] Calcium 9.5 8.5 - 10.5 mg/dL [facility] [id number] 02/01/2025 4:37 PM EDT [facility] Estimated GFR(CKD-EPI) 108 >=60 mL/min/BSA [facility] [id number] 02/01/2025 4:37 PM EDT [facility] Blood PERIPHERAL BLOOD SPECIMEN / Unknown Venipuncture / Unknown 02/01/2025 3:54 PM EDT 02/01/2025 3:57 PM EDT us Dakota Vargas MD LAB BLOOD ORDERABLES Final Re sult Performing Organization Address [facility]/ZIP Co de Phone Number [facility] [address] [place] [address], [place] [phone] * 6-Acetylmorphine Screen, Urine (02/01/2025 3:45 PM EDT) 6-Aceytlmorphi ne Screen, Urine Negative Negative [facility] [id number] 02/01/2025 4:29 PM EDT [facility] Urine URINE SPECIMEN / Unknown Collection / Unknown 02/01/2025 3:45 PM EDT 02/01/2025 3:48 PM EDT us Dakota Vargas MD URINE ORDERABLES Final Result Performing Organization Address [facility] de Phone Number [facility] [address] [place] [address], [place] [phone] * Tramadol Screen, Urine (02/01/2025 3:45 PM EDT) Tramadol Screen, Urine Negative Negative [facility] [id number] 02/01/2025 4:09 PM EDT [facility] Comment: Tramadol cutoff is 200 ng/mL Tramadol. Add-on order [id number] Tramadol Confirmation, Urine, if confirmation desired. Results should be used for medical purposes only and not for any legal or employment evaluative purposes. Urine URINE SPECIMEN / Unknown Collection / Unknown 02/01/2025 3:45 PM EDT 02/01/2025 3:48 PM EDT us Dakota Vargas MD URINE ORDERABLES Final Result Performing Organization Address City/[facility]/ZIP Co de Phone Number [facility] [address] [place] [address], [place] [phone] * Fentanyl Screen, Urine (02/01/2025 3:45 PM EDT) Fentanyl Screen, Urine Negative Negative [facility] [id number] 02/01/2025 4:09 PM EDT [facility] Urine URINE SPECIMEN / Unknown Collection / Unknown 02/01/2025 3:45 PM EDT 02/01/2025 3:48 PM EDT Dakota Vargas MD URINE ORDERABLES Final Result Performing Organization Address [facility]/ZIP Co de Phone Number [facility] [address] [place] [address], [place] [phone] * (ABNORMAL) Drug Screen, Urine (02/01/2025 3:45 PM EDT) Amphetamines Screen, Urine Negative Negative 02/01/2025 4:19 PM EDT [facility] Barbiturates Screen, Urine Negative Negative 02/01/2025 4:19 PM EDT [facility] Benzodiazepine Screen, Urine Negative Negative 02/01/2025 4:19 PM EDT [facility] Buprenorphine Screen, Urine Negative Negative 02/01/2025 4:19 PM EDT [facility] Cannabinoids Screen, Urine Positive(A) Negative 02/01/2025 4:19 PM EDT [facility] Cocaine Metabolite Screen, Urine Negative Negative 02/01/2025 4:19 PM EDT [facility] Methadone Screen, Urine Negative Negative 02/01/2025 4:19 PM EDT [facility] Methamphetamine, Urine Negative Negative 02/01/2025 4:19 PM EDT [facility] Opiates Screen, Urine Negative Negative 02/01/2025 4:19 PM EDT [facility] Oxycodone Screen, Urine Negative Negative 02/01/2025 4:19 PM EDT [facility] TCA, Urine Negative Negative 02/01/2025 4:19 PM T [facility] Creatinine, Ramirez Urine 33.1 No Established Reference Range mg/dL [facility] [id number] 02/01/2025 4:19 PM T [facility] Fentanyl Screen, Urine Negative Negative [place] [id number] 02/01/2025 4:19 PM EDT [facility] Tramadol Screen, Urine Negative Negative [facility] [id number] 02/01/2025 4:19 PM T [facility] 6-Aceytlmorphine Screen, Urine Negative Negative [facility] [id number] 02/01/2025 4:19 PM T [facility] Phencyclidine Screen, Urine Negative Negative 02/01/2025 4:19 PM T [facility] Urine URINE SPECIMEN / Unknown Collection / Unknown 02/01/2025 3:45 PM EDT 02/01/2025 3:48 PM EDT [facility] - 02/01/2025 4:19 PM EDT Specimen analysis was performed without chain of custody handling. Urine drug screen results should be used for medical purposes only and not for any legal or employment evaluative purposes. Amphetamines cutoff is 500 ng/mL. Barbiturates cutoff is 200 ng/mL. Benzodiazepines cutoff is 150 ng/mL. Buprenorphine cutoff is 300 ng/mL. Cannabinoids cutoff is 50 ng/mL. Cocaine cutoff is 150 ng/mL. Methadone cutoff is 200 ng/mL. Methamphetamine cutoff is 500 ng/ml Opiates cutoff is 100 ng/mL. Oxycodone cutoff is 100 ng/mL. Phencyclidine (PCP) cutoff is 25 ng/mL TCA cutoff is 300 ng/mL Urine results are presumptive based only on screening methods and have not been confirmed by a second method. These results should be used only by physicians to render diagnosis, treatment, or to monitor progress of medical conditions. The assay is not intended to monitor compliance or absinence. Thresholds are established by the test hvac manager. Drug levels below thresholds will be reported as negative. This is an antibody-antigen methods screening test and has the potential for false positive results caused by other drugs, medications and supplements with similar structures, if results are discordant clinically. us Dakota Vargas MD URINE ORDERABLES Final Result [facility] [address] [place] [address], documented in this encounter Visit Diagnoses Diagnosis Schizoaffective disorder, unspecified type (CMS-HCC)- Primary Schizoaffective disorder, unspecified type (CMS-HCC) [F25.9] Delusion (CMS-HCC) [F22] Unspecified paranoid state documented in this encounter Administered Medications Inactive Administered Medications - up to 3 most recent administrations Medication Order MAR Action Action Date Dose Rate Site calcium carbonate (TUMS) chewable tablet 1,000 mg 1,000 mg, Oral, 3 times daily PRN, Starting on Wed02/02/25 at 1217, Until Wed02/06/25 at 1620, reflux Given 02/05/2025 1:45 PM EST 1,000 mg Given 02/04/2025 1:59 PM EST 1,000 mg Given 02/03/2025 10:48 PM EDT 1,000 mg famotidine (PEPCID) tablet 20 mg 20 mg, Oral, Once, 1 dose, On 02/03/25 at 1339 Given 02/03/2025 1:45 PM EDT 20 mg haloperidoL (HALDOL) tablet 15 mg 15 mg, Oral, At bedtime, First dose on Wed02/02/25 at 2100, Until Discontinued Given 02/05/2025 8:35 PM EST 15 mg Given 02/04/2025 8:15 PM EST 15 mg Given 02/03/2025 10:48 PM EDT 15 mg ibuprofen (MOTRIN) tablet 600 mg 600 mg, Oral, Once, 1 dose, On 02/04/25 at 0811 Given 02/04/2025 8:13 AM EST 600 mg LORazepam (ATIVAN) tablet 2 mg 2 mg, Oral, At bedtime, First dose on Wed02/02/25 at 2100, Until Discontinued Given 02/05/2025 8:34 PM EST 2 mg Given 02/04/2025 8:15 PM EST 2 mg Given 02/03/2025 10:48 PM EDT 2 mg nicotine polacrilex (NICORETTE) gum 2 mg 2 mg, Buccal, Every 2 hour PRN, Starting on Julee 02/01/25 at 1739, Until 02/05/25 at 1352, smoking cessation Given 02/05/2025 1:45 PM EST 2 mg Given 02/04/2025 9:06 PM EST 2 mg Given 02/04/2025 4:24 PM EST 2 mg nicotine polacrilex (NICORETTE) gum 4 mg 4 mg, Buccal, Every 1 hour PRN, Starting on Wed02/05/25 at 1352, Until Wed02/06/25 at 1620, smoking cessation Given 02/06/2025 12:23 PM EST 4 mg Given 02/06/2025 9:13 AM EST 4 mg Given 02/05/2025 7:30 PM EST 4 mg documented in this encounter Active and Recently Administered Medications Due to Daylight Saving Time, this section may contain times in both EDT and EST. Scheduled Medication Order 02/04/2025 02/05/2025 02/06/2025 haloperidoL (HALDOL) tablet 15 mg 15 mg, Oral, At bedtime, First dose on Wed02/02/25 at 2100, Until Discontinued 2014 (Given - Provider: Rhett Bazan RN) 2034 (Given - Provider: Claudia Hurtado, BRANDON) ibuprofen (MOTRIN) tablet 600 mg (COMPLETED) 600 mg, Oral, Once, 1 dose, On 02/04/25 at 0811 0813 (Given - Provider: Kelley Hsieh RN) LORazepam (ATIVAN) tablet 2 mg 2 mg, Oral, At bedtime, First dose on Wed02/02/25 at 2100, Until Discontinued 2014 (Given - Provider: Rhett Bazan RN) 2033 (Given - Provider: Claudia Hurtado RN) PRN Medication Order 02/04/2025 02/05/2025 02/06/2025 calcium carbonate (TUMS) chewable tablet 1,000 mg 1,000 mg, Oral, 3 times daily PRN, Starting on Wed02/02/25 at 1217, Until Wed02/06/25 at 1620, reflux 1359 (Given - Provider: Nomi Manzo RN) 1345 (Given - Provider: Debbie Rose RN) nicotine polacrilex (NICORETTE) gum 2 mg (CANCELED) 2 mg, Buccal, Every 2 hour PRN, Starting on Julee 02/01/25 at 1739, Until 02/05/25 at 1352, smoking cessation 0813 (Given - Provider: Kelley Hsieh, RN)1308 (Given - Provider: Nomi Manzo, RN)1624 (Given - Provider: Franck Melgar, RN)2106 (Given - Provider: Rhett Bazan, RN) 0826 (Not Given - Provider: Marielle Ren, BRANDON - Reason: Patient Refused)1345 (Given - Provider: Debbie Rose, BRANDON)1402 (Not Given - Provider: Debbie Rose RN - Reason: Other - Indicate below - Comment: wrong dose) nicotine polacrilex (NICORETTE) gum 4 mg 4 mg, Buccal, Every 1 hour PRN, Starting on 02/05/25 at 1352, Until 02/06/25 at 1620, smoking cessation 1359 (Given - Provider: Debbie Rose, BRANDON)1713 (Given - Provider: Indiana Johnson, BRANDON)1930 (Given - Provider: Claudia Hurtado, BRANDON) 0913 (Given - Provider: Rosa Maria Smalls, BRANDON)1223 (Given - Provider: Hossein Garcia, BRANDON) documented in this encounter Care Teams Maintenance Shop Welder Relationship Specialty Start Date End Date Julio Prado MD [facility] [address] ~ [address] [place] [address] PCP - General Internal Medicine 03/18/23 Edwin Rojas MD [facility] [address] [place] [address] PCP - Insurance Assigned PCP 02/01/25 Sheldon Mercer MD [facility] [address] ~ [address] [place] [address] Referring Physician Colorectal Surgery 03/31/23 documented as of this encounter
--- NOTE | 2025-02-06 18:01 | PC.ADMIT ---
Pt arrived at 1643 from [facility] ED. Pt is able to state he was brought by EMS to hospital, unable to state any other reasons why he would be here. Pt showed up to hospital in a scuba suit because it was raining. Pt is disorganized, unable to provide relevant information at this time. Unclear what happened at [facility] that led to EMS being called, but pt was upset that he had not received medication for his toenail fungus, amongst other complaints. Pt has a history of schizophrenia. Was unable to state if he has ever been in a psych hospital before. Did sign a CV with LP. Pt signed CASSANDRA only for insurance. He reports being a nicorette user only, and has orders for same. He declined the flu shot at this time. He lives in [place]. He reports staying with friends, or with Adrian . Adrian's number was given to [facility] but does not appear to be accurate and staff there could not follow up. Pt also reports living in a van at times. No relevant information obtained during admission. Pt has been in [facility] for the last 5 days and has been taking ativan 2mg and haldol 15mg at HS. These were not his home meds. Ginnan notified so medications could be ordered. Safety tool complete. Treatment plan initiated.
--- OUTSIDE RECORDS SUMMARY | 2025-02-06 18:40 | XMS_ITS | Encounter Summary ---
Author Organization [facility] Address [address] [place] [address] Phone Care Team Providers Care Weatherization Specialist Name Role Phone Irving Tucker MD Unavailable [phone] Unknown, Unknown Primary Care Provider Johny wiley Encounter Details Date Type Department Care Team (Late st Contact Info) Description 12/22/2022 Ancillary Orders X-ray, [facility] - [address], [address] [place] [address] Raudel Villa MD [address] [facility] [address] [place] [address] [email or web address] Foreign body in eye, unspecified laterality, initial encounter Social History Tobacco Use Types Packs/Day Years Used Date Smoking Tobacco: Never Smokeless Tobacco: Never Alcohol Use Standard Drinks/Week Comments Not Currently 0 (1 standard drink = 0.6 oz pur e alcohol) Education Answer Date Recorded Are you interested in more education? Not on claudia e 10/03/2022 Are you concerned about learning? Not on file 10/03/2022 No 10/03/2022 No 10/03/2022 Digital Access Answer Date Recorded No 10/03/2022 No 10/03/2022 Reliable internet access at home? Not on file 10/03/2022 Device with a working camera? Not on file Sex and Gender Information Value Date Recorded Sex Assigned at Male 08/19/2021 12:39 PM EDT Legal Sex Male 11:14 AM EDT Gender Identity Male 08/19/2021 12:39 PM EDT Sexual Orientation Straight 08/19/2021 12 :39 PM EDT documented as of this encounter Plan of Treatment Not on file documented as of this encounter Results * XR Orbit For Foreign Body (Bilateral) (12/24/2022 11:22 AM EDT) Anatomical Region Laterality Modality Face Radiographic Fernanda ging 12/24/2022 11:2 7 AM EDT Impressions 12/24/2022 11:27 AM EDT No radiopaque foreign body. Narrative 12/24/2022 11:27 AM EDT XR ORBIT FOR FOREIGN BODY (BILATERAL) COMPARISON: No relevant comparison. FINDINGS: No radiopaque foreign body. Procedure Note Andi Richards MD - 12/24/2022 XR ORBIT FOR FOREIGN BODY (BILATERAL) COMPARISON: No relevant comparison. FINDINGS: No radiopaque foreign body. IMPRESSION: No radiopaque foreign body. Raudel Villa MD IMG XR HEAD AND SHUNT SER IES Final Result documented in this encounter Visit Diagnoses Diagnosis Foreign body in eye, unspecified laterality, initial encounter Foreign body in eye, unspecified laterality, initial encounter documented in this encounter Care Teams Weatherization Specialist Relationship Specialty Start Date End Date Unknown, Unknown, PCP - General 10/23/22 Irving Tucker MD [address] [place] [address] [email or web address] Historical LMR Provider 05/05/18 documented as of this encounter Additional Source Comments The information contained in this document represents components of the legal health record. It is not the complete legal health record.[facility]
--- OUTSIDE RECORDS SUMMARY | 2025-02-06 18:40 | XMS_ITS | Clinical Summary ---
Author Organization [facility] Address [address] [place] [address] Care Team Providers Care Mounter Hand Name Role Phone Julio Prado MD Primary Care Provider + [phone] Sheldon Mercer MD Unavailable + [phone] Edwin Rojas MD Unavailable [phone] Allergies No known active allergies Medications ondansetron (ZOFRAN) 4 MG tablet Take 1 tablet (4 mg total) by mouth every 8 hours as needed for nausea. 5 tablet 4 Active Additional Information Patient not taking.Reported on 02/01/2025 ibuprofen (MOTRIN) 600 MG tablet Take 1 tablet (600 mg total) by mouth every 6 hours as needed for pain or fever for up to 30 doses. 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 03/31/2023 Rectal bleeding 07/10/2022 Tubular adenoma 07/10/2022 Schizoaffective disorder 07/10/2022 Hyperlipidemia 07/10/2022 Hx of total knee replacement, left 07/10/2022 History of umbilical hernia repair 07/10/2022 Overview (07/10/2022): 2017 Depression 05/29/2020 Anxiety disorder 05/29/2020 Resolved Problems Problem Noted Date Diagnosed Date Resolved Date Osteoarthritis of left knee 06/07/2020 07/10/2022 Closed displaced bicondylar fracture of left tibia 05/29/2020 07/10/2022 Encounters Date Type Department Care Team Description 02/01/2025 3:28 PM EDT - 02/06/2025 2:20 PM EST Emergency [facility] [address] [place] [address] Dakota Vargas MD Chang, Joseph L, MD Penn, Maximilian Alfonso, César Ruby MD Lee, Calvin A, MD Chen, Jenny P., MD Reynolds, MD Collins Benz II, Teriggi, MD Gross, Samuel, MD Quinn, MD Arpita Corado, MD Maximilian Schizoaffective disorder, unspecified type (CMS-HCC) [F25.9] (Primary Dx); Delusion (CMS-HCC) [F22]; Schizoaffective disorder, unspecified type (CMS-HCC) Discharge Disposition: Transfer to Acute Care Hospital 02/01/2025 12:49 PM EDT - 02/01/2025 1:52 PM EDT Hospital Encounter [facility], [address] [address] Johnie Horner MD Acute pain of left knee (Primary Dx) Discharge Disposition: Home or Self Care 02/01/2025 Travel from Last 3 Months Family History Medical History Relation Comments Coronary artery disease Father Coronary artery disease Mother Relation Status Comments Brother Alive Father Mother Social History Tobacco Use Types Packs/Day Years [...] any time in the past 12 m [facility], were you homeless or living in a fdc (including now)? Patient declined 02/01/2025 [facility] Utilities Answer Date Recorded In the past 12 months has th e [employer], gas, oil, or water company threatened to [...] PM EDT Sexual Orientation Not on file Last Filed Vital Signs Vital Sign Reading [...] Mass Index 35.94 02/01/2025 3:34 PM EDT Plan of Treatment Health Maintenance Due Date Last Done Comments Hemoglobin A1c 1973 Lipid Panel 1973 PSA 1973 Prostate Cancer Screening 1973 SDM 1973 Depression Screening 1977 Hepatitis C Screening 1991 DTaP,Tdap,and Td Vaccines (1 - Tdap) 1992 CT Colonography 2018 FIT 2018 Multitarget Stool DNA (Cologuard) 2018 Sigmoidoscopy 2018 Medicare Initial AWV [id number] 07/05/2019 Pneumococcal Vaccine: 50+ Ye ars (1 of 1 - PCV) 2023 Zoster Vaccine (1 of 2) 2023 FOBT 10/04/2023 10/03/2022 COVID-19 Vaccine (1 - 2024-2 6 season) 2024 Influenza Vaccine (#1) 2024 Blood Pressure 02/06/2026 02/06/2025 Colonoscopy 06/30/2032 06/30/2022 Colorectal Cancer Screening 06/30/2032 Meningococcal B Vaccines Aged Out No longer eligible based on patient's age to complete this topic Meningococcal Vaccines Aged Out No lo nger eligible based on patient's age to complete this topic Procedures Procedure Name Priority Date/Time Associated Diagnosis Comments ECG 12-LEAD STAT 02/06/2025 11:49 AM EST CBC AND DIFFERENTIAL STAT 02/01/2025 3:54 PM EDT CBC AND DIFFERENTIAL STAT 02/01/2025 3:54 PM EDT TOXICOLOGY SCREEN, BLOOD STAT 02/01/2025 3:54 PM EDT BASIC METABOLIC PANEL STAT 02/01/2025 3:54 PM EDT 6-ACETYLMORPHINE SCREEN, URINE STAT 02/01/2025 3:45 PM EDT TRAMADOL SCREEN, URINE STAT 02/01/2025 3:45 PM EDT FENTANYL SCREEN, URINE STAT 02/01/2025 3:45 PM EDT DRUG SCREEN, URINE STAT 02/01/2025 3: 45 PM EDT XR KNEE 3 VW LEFT STAT 02/01/2025 1:1 2 PM EDT from Last 3 Months Results * ECG 12 lead, to be obtained, other indication (02/06/2025 11:49 AM EST) [facility] Ventricular Heart Rate 72 BPM EKG WIN Atrial Heart Rate 72 BPM EKG WIN OH Interval 140 ms EKG WIN QRSD Interval 102 ms EKG WIN QT Interval 390 ms EKG WIN QTC Interval 427 ms EKG WIN P [place] 63 degrees EKG WIN R [place] 21 degrees EKG WIN T Wave [place] 46 degrees EKG WIN 02/06/2025 11:4 9 [...] Neymar Ramos (1001) on 02/06/2025 4:59:42 PM Salvador Alfonso MD ECG ORDERABLES Final Result EKG WIN [address] [place] [address] * (ABNORMAL) CBC and Differential (02/01/2025 3:54 PM EDT) WBC 11.59(H) 4.00 - 11.00 K/uL 02/01/2025 4:01 PM EDT [facility] RBC 4.42 4.10 - 5.60 M/uL 02/01/2025 4:01 PM EDT [facility] Hemoglobin 14.4 12.7 - 16.7 g/dL 02/01/2025 4:01 PM EDT [facility] Hematocrit 42.7 38.0 - 50.0 % 02/01/2025 4:01 PM EDT [facility] MCH 32.6 23.0 - 37.0 pg 02/01/2025 4:01 PM EDT [facility] MCHC 33.7 29.0 - 38.0 g/dL 02/01/2025 4:01 PM EDT [facility] MCV 97 82 - 98 fL 02/01/2025 4:01 PM EDT [facility] RDW 12.6 11.5 - 15.0 % 02/01/2025 4:01 PM EDT [facility] Platelet Count 246 150 - 450 K/uL 02/01/2025 4:01 PM EDT [facility] MPV 10.9 8.0 - 14.0 fL 02/01/2025 4:01 PM EDT [facility] Neutrophil 71.7 % 02/01/2025 4:01 PM EDT [facility] Lymphocyte 18.7 % 02/01/2025 4:01 PM EDT [facility] Monocyte 8.8 % 02/01/2025 4:01 PM EDT [facility] Eosinophil 0.2 % 02/01/2025 4:01 PM EDT [facility] Basophil 0.3 % 02/01/2025 4:01 PM EDT [facility] Immature Granulocyte ([place], Myelo, Promyelocyte) 0.3 % 02/01/2025 4:[address] [facility] Absolute Neutrophil Count 8.31(H) 1.50 - 7.70 K/uL 02/01/2025 4:[address] [facility] Absolute Immature Granulocyte ([place], Myelo, Promyelocyte) 0.04 0.00 - 0.09 K/uL 02/01/2025 4:[address] [facility] Absolute Lymphocyte Count 2.17 1.00 - 5.00 K/uL 02/01/2025 4:[address] [facility] Absolute Monocyte Count 1.02(H) 0.10 - 1.00 K/uL 02/01/2025 4:[address] [facility] Absolute Eosinophil Count 0.02 0.00 - 0.70 K/uL 02/01/2025 4:[address] [facility] Absolute Basophil Count 0.03 0.00 - 0.20 K/uL 02/01/2025 4:[address] [facility] Blood PERIPHERAL BLOOD SPECIMEN / Unknown Venipuncture / Unknown 02/01/2025 3:54 PM EDT 02/01/2025 3:57 PM EDT Dakota Vargas MD LAB BLOOD ORDERABLES Final Re sult [facility] [address] [place] [address], * (ABNORMAL) Plasma Toxicology Screen (02/01/2025 3:54 PM EDT) Acetaminophen Result,Blood <3(L) Therapuetic Range 10-30 ug/mL [facility] [id number] 02/01/2025 4:37 PM EDT [facility] Alcohol <10 <10 mg/dL [facility] [id number] 02/01/2025 4:[address] [facility] Salicylate Level, Blood <5(L) 15 - <30 mg/dL [facility] [id number] 02/01/2025 4:[address] [facility] Blood PERIPHERAL BLOOD SPECIMEN / Unknown Venipuncture / Unknown 02/01/2025 3:54 PM EDT 02/01/2025 3:57 PM EDT Dakota Vargas MD LAB BLOOD ORDERABLES Final Re sult [facility] [address] [place] [address], * Basic Metabolic Panel (02/01/2025 3:54 PM EDT) [facility] Sodium 141 134 - 144 mmol/L [address] 02/01/2025 4:37 PM EDT [facility] Potassium 4.6 3.2 - 5.1 mmol/L [address] 02/01/2025 4:37 PM EDT [facility] Comment:Samples tested in se rum may exhibit a higher potassium value than those tested on plasma. Our current range is based on plasma testing. Chloride 104 97 - 109 mmol/L [address] 02/01/2025 4:37 PM EDT [facility] Total CO2/Bicarbonat e 24 20 - 32 mmol/L [address] 02/01/2025 4:37 PM EDT [facility] Anion Gap 13 5 - 15 mmol/L [address] 02/01/2025 4:37 PM EDT [facility] Anion Gap [address] 02/01/2025 4:37 PM EDT [facility] BUN 18 9 - 26 mg/dL [address] 02/01/2025 4:37 PM EDT [facility] Creatinine, Blood 0.78 0.70 - 1.30 mg/dL [address] 02/01/2025 4:37 PM EDT [facility] Glucose, Blood 84 70 - 110 mg/dL [address] 02/01/2025 4:37 PM EDT [facility] Calcium 9.5 8.5 - 10.5 mg/dL [address] 02/01/2025 4:37 PM EDT [facility] Estimated GFR(CKD-EPI) 108 >=60 mL/min/BSA [address] 02/01/2025 4:37 PM EDT [facility] Blood PERIPHERAL BLOOD SPECIMEN / Unknown Venipuncture / Unknown 02/01/2025 3:54 PM EDT 02/01/2025 3:57 PM EDT us Dakota Vargas MD LAB BLOOD ORDERABLES Final Re sult Performing Organization Address [facility]/ZIP Co de Phone Number [facility] [address] [place] [address], * 6-Acetylmorphine Screen, Urine (02/01/2025 3:45 PM EDT) 6-Aceytlmorphi ne Screen, Urine Negative Negative [facility] [id number] 02/01/2025 4:29 PM EDT [facility] Urine URINE SPECIMEN / Unknown Collection / Unknown 02/01/2025 3:45 PM EDT 02/01/2025 3:48 PM EDT Dakota Vargas MD URINE ORDERABLES Final Result Performing Organization Address [facility] de Phone Number [facility] [address] [place] [address], * (ABNORMAL) Drug Screen, Urine (02/01/2025 3:45 PM EDT) Amphetamines Screen, Urine Negative Negative 02/01/2025 4:[address] [facility] Barbiturates Screen, Urine Negative Negative 02/01/2025 4:19 PM EDT [facility] Benzodiazepine Screen, Urine Negative Negative 02/01/2025 4:19 PM EDT [facility] Buprenorphine Screen, Urine Negative Negative 02/01/2025 4:[address] [facility] Cannabinoids Screen, Urine Positive(A) Negative 02/01/2025 4:19 PM EDT [facility] Cocaine Metabolite Screen, Urine Negative Negative 02/01/2025 4:19 PM EDT [facility] Methadone Screen, Urine Negative Negative 02/01/2025 4:19 PM EDT [facility] Methamphetamine, Urine Negative Negative 02/01/2025 4:19 PM EDT [facility] Opiates Screen, Urine Negative Negative 02/01/2025 4:19 PM T [facility] Oxycodone Screen, Urine Negative Negative 02/01/2025 4:19 PM [facility] TCA, Urine Negative Negative 02/01/2025 4:19 PM T [facility] Creatinine, Ramirez Urine 33.1 No Established Reference Range mg/dL [facility] [id number] 02/01/2025 4:19 PM [facility] Fentanyl Screen, Urine Negative Negative [facility] [id number] 02/01/2025 4:19 PM [facility] Tramadol Screen, Urine Negative Negative [facility] [id number] 02/01/2025 4:19 PM [facility] 6-Aceytlmorphine Screen, Urine Negative Negative [facility] [id number] 02/01/2025 4:19 PM [facility] Phencyclidine Screen, Urine Negative Negative 02/01/2025 4:19 PM [facility] Urine URINE SPECIMEN / Unknown Collection / Unknown 02/01/2025 3:45 PM EDT 02/01/2025 3:48 PM EDT [facility]ATORY - 02/01/2025 4:19 PM EDT Specimen [...] absinence. Thresholds are established by the test otolaryngology nurse. Drug levels below thresholds will be reported as negative. This is an antibody-antigen methods screening test and has the potential for false positive results caused by other drugs, medications and supplements with similar structures, if results are discordant clinically. us Dakota Vargas MD URINE ORDERABLES Final Result Performing Organization Address [facility] de Phone Number [facility] [address] [place] [address], [place] [phone] * Tramadol Screen, Urine (02/01/2025 3:45 PM EDT) Tramadol Screen, Urine Negative Negative [facility] [id number] 02/01/2025 4:[address] [facility] Comment: Tramadol cutoff is 200 ng/mL Tramadol. Add-on order [id number] Tramadol Confirmation, Urine, if confirmation desired. Results should be used for medical purposes only and not for any legal or employment evaluative purposes. Urine URINE SPECIMEN / Unknown Collection / Unknown 02/01/2025 3:45 PM EDT 02/01/2025 3:48 PM EDT us Dakota Vargas MD URINE ORDERABLES Final Result Performing Organization Address [facility] de Phone Number [address] [address], [place] [phone] * Fentanyl Screen, Urine (02/01/2025 3:45 PM EDT) Fentanyl Screen, Urine Negative Negative [facility] [id number] 02/01/2025 4:[address] [facility] Urine URINE SPECIMEN / Unknown Collection / Unknown 02/01/2025 3:45 PM EDT 02/01/2025 3:48 PM EDT us Dakota Vargas MD URINE ORDERABLES Final Result Performing Organization Address [facility] de Phone Number [address] [address], [place] [phone] * XR Knee 3 VW Left (02/01/2025 [...] INCIDENTAL FINDINGS WHICH MAY REQUIRE FOLLOW-UP: None. Johnie Horner MD IMG DIAGNOSTIC IMAGING ORDERAB LES Final Result from Last 3 [place] [phone] AARP MEDICARE ADVANTAGE Care Teams Mounter Hand Relationship Specialty Start Date End Date uJlio Prado MD [facility] [address] ~ [address] [place], [place] [id number] PCP - General Internal Medicine 03/18/23 Edwin Rojas MD [facility] [address] [place] [id number] PCP - Insurance Assigned PCP 02/01/25 Sheldon Mercer MD [facility] [address] ~ [address] [place] [address] Referring Physician Colorectal Surgery 03/31/23
--- OUTSIDE RECORDS SUMMARY | 2025-02-06 18:40 | XMS_ITS | Encounter Summary ---
Author Organization [facility] Address [address] [place] [address] Care Team Providers Care Soil Scientist Name Role Phone Julio Prado MD Primary Care Provider + [phone] Sheldon Mercer MD Unavailable [phone] Edwin Rojas MD Unavailable [phone] Encounter Details Date Type Department Care Team (Latest Contact Info) Description 02/01/2025 Travel Social History Tobacco Use Types Packs/Day Years [...] any time in the past 12 m [facility], were you homeless or living in a chcf (including now)? Patient declined 02/01/2025 [facility] Utilities Answer Date Recorded In the [...] on file documented as of this encounter Plan of Treatment Not on file documented as of this encounter Visit Diagnoses Not on filedocumented in this encounter Care Teams Soil Scientist Relationship Specialty Start Date End Date Julio Prado MD [facility] [address] ~ [address] [place] [address] PCP - General Internal Medicine 03/18/23 Edwin Rojas MD [facility] [address] [place] [address] PCP - Insurance Assigned PCP 02/01/25 Sheldon Mercer MD [facility] [address] ~ [address] [place] [address] Referring Physician Colorectal Surgery 03/31/23 documented as of this encounter
--- OUTSIDE RECORDS SUMMARY | 2025-02-06 18:40 | XMS_ITS | Encounter Summary ---
Author Organization [facility] Address [address] [place] [address] Phone Care Team Providers Care Hatchery Laborer Name Role Phone Irving Tucker MD Unavailable [phone] Unknown, Unknown Primary Care Provider Johny wiley Encounter Details Date Type Department Care Team (Late st Contact Info) Description 11/10/2022 Procedure Pass MRI, [facility] - [address], [address] [place], [place] [id number] Social History Tobacco Use Types Packs/Day Years [...] on filedocumented in this encounter Care Teams Hatchery Laborer Relationship Specialty Start Date End Date Unknown, Unknown, MD PCP - General 10/23/22 Irving Tucker MD [address] [place] [address] [email or web address] Historical LMR Provider 05/05/18 documented as of this encounter Additional Source Comments The information contained in this document represents components of the legal health record. It is not the complete legal health record.[facility]
--- OUTSIDE RECORDS SUMMARY | 2025-02-06 18:40 | XMS_ITS | Patient Health Record ---
Author Organization [facility] Billing Info Address [address] [place] [address] Care Team Providers Care Last Putter Away Name Role Phone DR YOUSIF BARTON Primary Care Provider Unavail able Reason For Referral No Information Plan Of Treatment No Information Insurance Providers Payer Name Payer Address Payer Phone Subscriber Number Group Number Insured Name Patient Relationship to Insured Coverage Start Date Coverage End Date [facility] ADVANTAGE PPO [address] [address] [facility] [place] [id number] Paolo Martinez Self - patient is the insured 5 5 MEDICARE [place] PART B [address] [employer] TANA POWELL [id number] NONE Paolo Martinez Self - patient is the insured 8 9
--- OUTSIDE RECORDS SUMMARY | 2025-02-06 18:40 | XMS_ITS | Clinical Summary ---
Author Organization [facility] Address [address] [address] [place] [address] Phone Care Team Providers Care Tack Cutter Name Role Phone Irving Tucker MD Unavailable [phone] Unknown, Unknown Primary Care Provider Unavai lable Allergies No known active allergies Medications hydrocortisone (ANUSOL-HC) 2.5 % rectal cream Place rectally 2 (two) times a day. 30 g 1 10/03/2022 Active Active Problems Problem Noted Date Diagnosed Date Meibomian gland dysfunction (MGD) of both eyes 0 10/23/2022 Presbyopia 10/23/2022 Social History Tobacco Use Types Packs/Day Years Used Date Smoking Tobacco: Never Smokeless Tobacco: Never Tobacco Cessation:Counseling Given: Not Answered Alcohol Use Standard Drinks/Week Comments Not Currently [...] Orientation Straight 08/19/2021 12 :39 PM EDT Last Filed Vital Signs Vital Sign Reading Time Taken Comments Blood Pressure 138/88 10/03/2022 9:10 AM EDT Pulse 70 11/10/2022 8:46 AM EDT Temperature 35.9 C (96.7 F) 11/10/2022 8:46 AM EDT Respiratory Rate 16 10/03/2022 9:10 AM EDT Oxygen Saturation 99% 11/10/2022 8:46 AM EDT Inhaled Oxygen Concentration - - Weight 127 kg (280 lb) 11/10/2022 8:46 AM EDT Height 182.9 cm (6') 11/10/2022 8:46 AM EDT Body Mass Index 37.97 11/10/2022 8:46 AM EDT Plan of Treatment Health Maintenance Due Date Last Done Comments Adult Td,Tdap Booster 1973 LIPID PANEL 1973 DEPRESSION SCREENING 1985 HEPATITIS C SCREENING 1991 HIV ONE-TIME SCREENING (18-6 5 YEARS) 1991 SCREENING FOR DIABETES 2008 COLOGUARD 2018 COLONOSCOPY 2018 COLORECTAL CANCER SCREENING 2018 FIT TEST 2018 FOBT 2018 SIGMOIDOSCOPY 2018 VIRTUAL COLONOSCOPY 2018 PNEUMOCOCCAL VACCINES (50+ y ears) (1 of 1 - PCV) 2023 ZOSTER VACCINES (1 of 2) 2023 INFLUENZA VACCINE (#1) 2024 COVID-19 VACCINE ( - 2024-2 6 season) 2024 RSV VACCINE (1 - 1-dose 75+ series) 2048 HEPATITIS A VACCINES Aged Out 07/24/2016 No long er eligible based on patient's age to complete this topic SMOKING STATUS SCREENING (On ce After 26 Yrs) Completed 10/23/2022 HIB VACCINES Aged Out No longer eligi ble based on patient's age to complete this topic MENINGOCOCCAL VACCINES (ACWY) Aged Out No longer eligible based on patient's age to complete this topic MENINGOCOCCAL VACCINES (B) Aged Out N o longer eligible based on patient's age to complete this topic Medical Devices Not on file Insurance MEDICARE PART A & B MEDICARE REPLACEMENT MEDICARE PART A & B Member Subscriber Plan / Payer (Ef fective 2018-Present) Name:LatishaMauraSabaZeeshanalexiser Member ID:[id number] Relation to Subscriber:Self Name:LatishaMauraWandy Harsh Subscriber ID:[id number] Payer ID:[id number] Group ID:Not on file Type:Medicare Address: [facility] [address] [place] [id number] MEDICARE REPLACEMENT MEDICARE PART A & B MEDICARE PART A & B MEDICARE PART A & B Member Subscriber Plan / Payer (Ef fective 2018-Present) Name:Harsh Arciniega Member ID:[id number] Relation to Subscriber:Self Name:Harsh Arciniega Subscriber ID:[id number] Payer ID:[id number] Group ID:Not on file Type:Medicare Address: [facility] [address] MEDICARE REPLACEMENT MEDICARE PART A & B MEDICARE PART A & B MEDICARE REPLACEMENT Member Subscriber Plan / Payer (Ef fective 2022-Present) Name:LatishaMauraWandy Sloaner Relation to Subscriber:Self Name:JenniferWandy Sloaner Payer ID:[id number] (NAIC) Type:Medicare Address: [place] [id number] MEDICARE PART A & B MEDICARE REPLACEMENT MEDICARE PART A & B MEDICARE REPLACEMENT MEDICARE PART A & B Member Subscriber Plan / Payer (Ef fective 2018-Present) Name:Sloan Arciniegaer Member ID:[id number] Relation to Subscriber:Self Name:LatishaMauraWandy Zeeshanalexislobito Subscriber ID:[id number] Payer ID:[id number] Group ID:Not on file Type:Medicare Address: [facility] [address] MEDICARE REPLACEMENT Care Teams Tack Cutter Relationship Specialty Start Date End Date Unknown, Unknown, MD PCP - General 10/23/22 Irving Tucker MD [address] [place] [address] [email or web address] Historical LMR Provider 05/05/18 Additional Source Comments The information contained in this document represents components of the legal health record. It is not the complete legal health record.[facility]
[2025-02-06 20:00] VITALS: BP 155/97; PULSE 110; TEMP 36.4; O2SAT 98
--- NOTE | 2025-02-07 08:31 | HO.PM.IMCN ---
History of Present Illness Data of Consult Service Date: 02/07/25 Primary Care Provider: Unknown Physician HPI Reason for consult: Medical consult 49-year-old male with past medical history of schizophrenia and anxiety presented to the emergency department with paranoia and delusions. Initial evaluation revealed a mild leukocytosis, no anemia BMP was within normal limits toxicology screen negative urine drug screen positive for marijuana. EKG with normal sinus rhythm no evidence of ischemia. He was placed on a section 12 and evaluated and felt to be appropriate for inpatient level of care. On exam patient preoccupied with onychomycosis. Reports that he has had a nail removed on left for this, and needs right great toe nail removed, has an outpatient unemployment examiner. He otherwise has no medical concerns. Review of Systems Review of Systems: Denies any shortness of breath, chest pain, palpitations, dizziness, lightheadedness, headaches, dysuria, abdominal pain or discomfort, nausea, vomiting or diarrhea. Denies chills, body aches, muscle aches, fatigue or weight loss. PMFSH Social History Household Members: Other Household Members Other:: mary beth, also lives in a van and camps a lot Housing Other:: a van Do you presently have visiting nurse or other home services: No Patient Tobacco Use Status: Current someday Tobacco user Tobacco use type: Cigarette Patient Interested in Nicotine Replacement: Yes Patient Given Instructions on How to Stop Smoking: No Currently Displaying Signs/Symptoms of Drug Intoxication Withdrawal: No Do you feel safe in your current relationship?: No Current Relationship Spiritual Healthcare Practices: n/a Congregation Healthcare Practices: n/a Cultural Healthcare Practices: n/a Advance Directives: No Advance Directives Information Provided: No Do you have thoughts of harming others: None Do you have a plan to hurt others: No Plan Recently lost weight without trying: Unsure How much weight loss: Unsure Eating poorly because of decreased appetite: No Nutrition screen score: 4 Nutrition Risks: No Nutritional Risk Poor oral hygiene: No service: No Sexual orientation: Straight/Heterosexual Meds Allergies Allergy/AdvReac Type Severity Reaction Status Date / Time No Known Allergies Allergy Verified 02/06/25 16:57 Active Medications: Current Medications Acetaminophen (Acetaminophen 325 Mg Tablet) 650 mg PO Q6H PRN PRN Reason: Headache/Pain, Scale 1-10 Last Admin: 02/06/25 20:07 Dose: 650 mg Al Hydroxide/Mg Hydroxide (Magnesium Hydrox/Alum Hydrox 30 Ml Oral.Susp) 30 ml PO Q6H PRN PRN Reason: Heartburn/Nausea Benztropine Mesylate (Benztropine Mesylate 0.5 Mg Tablet) 0.5 mg PO BID PRN PRN Reason: EPS Clotrimazole (Clotrimazole 1 % Cream 15 Gm Tube) 1 appl TOPICAL BID [facility]; Protocol Last Admin: 02/06/25 20:10 Dose: Not Given Haloperidol (Haloperidol 5 Mg Tablet) 15 mg PO BID [facility] Last Admin: 02/06/25 20:08 Dose: 15 mg Haloperidol (Haloperidol 5 Mg Tablet) 5 mg PO TID PRN PRN Reason: agitation/psychosis Hydroxyzine HCl (Hydroxyzine Hcl 25 Mg Tablet) 25 mg PO Q6H PRN PRN Reason: mild anxiety Ibuprofen (Ibuprofen 600 Mg Tablet) 600 mg PO Q6H PRN PRN Reason: moderate to severe pain Lorazepam (Lorazepam 1 Mg Tablet) 1 mg PO BEDTIME [facility] Last Admin: 02/06/25 20:08 Dose: 1 mg Lorazepam (Lorazepam 1 Mg Tablet) 1 mg PO BID PRN PRN Reason: severe anxiety Magnesium Hydroxide (Milk Of Magnesia 30 Ml Oral.Susp) 30 ml PO DAILY PRN PRN Reason: Constipation Melatonin (Melatonin 3 Mg Tablet) 9 mg PO BEDTIME [facility] Last Admin: 02/06/25 20:08 Dose: 9 mg Nicotine (Nicotine 21 Mg Patch.Td24) 21 mg TRANSDERMA DAILY PRN PRN Reason: smoking cessation Nicotine Polacrilex (Nicotine Polacrilex 2 Mg Gum) 4 mg BUCCAL Q2H PRN PRN Reason: Nicotine Cravings Last Admin: 02/07/25 07:25 Dose: 4 mg Olanzapine (Olanzapine 5 Mg Tablet) 5 mg PO TID PRN PRN Reason: agitation Trazodone HCl (Trazodone Hcl 50 Mg Tablet) 50 mg PO BEDTIME MRX1 PRN PRN Reason: Insomnia Physical Exam Vital Signs and Narrative: Vital Signs: Last Vital Signs Temp 97.5 F 02/06/25 20:00 Pulse 110 H 02/06/25 20:00 BP 155/97 H 02/06/25 20:00 Pulse Ox 98 02/06/25 20:00 O2 Del Method Room Air 02/06/25 20:00 Alert and oriented X3, calm and cooperative. Answers questions. Neuro: CN II-X11 intact, no deficits, visual acuity intact EYES: PERRLA, EOM intact ENT: Hearing intact, MMM Cardiac: S1 S2 RRR, No ectopy Pulmonary: lungs clear to auscultation, No increased WOB. Abdominal: BS active in all 4 quadrants, no guarding or tenderness MSK: Strength 5/5 upper and lower extremities : Deferred Extremities: No edema in lower extremities Psych: Mood stable, Quiet and cooperative. Skin: Warm and dry, Intact. Left great toe nail missing. Right great toe with small amount of fungus at base. Results Labs 02/07/25 07:49 Assessment and Plan (1) Onychomycosis: Status: Acute Plan 49-year-old with past medical history as listed below presented to the emergency depart with paranoia and delusions. He is now admitted for further inpatient level of care for stabilization. Schizophrenia/anxiety/delusions Treatment per psychiatric team Onychomycosis Lotrimin cream as ordered Follows with outpatient Podiatry Nothing further to offer here for treatment Thank you for allowing me to participate in the care of this patient. Will follow with you, please notify medical provider with any changes in condition or concerns.
[2025-02-07 08:42] LABS: Hemoglobin A1C 137.4054 umol/L; Total Hemoglobin (HGBA1C) 4008.8504 umol/L
[2025-02-07 08:53] LABS: Alanine Aminotransferase 29 U/L (0-40); Albumin Level 4.4 g/dL (3.5-5.0); Alkaline Phosphatase 74 U/L (39-117); Anion Gap 12 (12-20); Aspartate Amino Transferase 31 U/L (5-37); Blood Urea Nitrogen 17 mg/dL (9-16); Calcium 9.4 mg/dL (8.4-10.2); Carbon Dioxide 27 mmol/L (22-29); Chloride 107 mmol/L (96-108); Cholesterol 212 mg/dL (<200); Estimated Glomerular Filt Rate > 60; HDL Cholesterol 51 mg/dL (>40); Potassium 4.9 mmol/L (3.3-5.1); Sodium 141 mmol/L (135-145); Total Protein 7.3 g/dL (6.5-8.0); Triglycerides 83 mg/dL (<150)
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
[2025-02-07] MEDS: Clotrimazole 1 % Cream 15 GM TUBE 1 APPL TOPICAL ×2 (09:14→21:45)
[2025-02-07 20:17] VITALS: BP 125/85; PULSE 89; RESP 16; TEMP 36.4; O2SAT 97
[2025-02-08 08:00] VITALS: BP 123/80; PULSE 84; TEMP 36; O2SAT 97
[2025-02-08] MEDS: Clotrimazole 1 % Cream 15 GM TUBE 1 APPL TOPICAL ×2 (08:41→21:13)
[2025-02-08] MEDS: Nicotine 21 MG PATCH.TD24 TRANSDERMA (08:42)
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
[2025-02-08 20:00] VITALS: BP 138/90; PULSE 89; RESP 16; TEMP 36.8; O2SAT 98
[2025-02-09 08:00] VITALS: BP 130/78; PULSE 77; RESP 16; TEMP 36.4; O2SAT 97
[2025-02-09] MEDS: Clotrimazole 1 % Cream 15 GM TUBE 1 APPL TOPICAL ×2 (09:01→20:03)
[2025-02-09] MEDS: Nicotine 21 MG PATCH.TD24 TRANSDERMA (09:05)
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
[2025-02-09 20:00] VITALS: BP 110/84; PULSE 89; RESP 15; TEMP 37; O2SAT 98
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
[2025-02-10] MEDS: Nicotine 21 MG PATCH.TD24 TRANSDERMA (08:34)
[2025-02-10] MEDS: Clotrimazole 1 % Cream 15 GM TUBE 1 APPL TOPICAL ×2 (14:42→20:07)
[2025-02-10 20:00] VITALS: BP 157/81; PULSE 92; RESP 15; TEMP 36.7; O2SAT 97
[2025-02-10] MEDS: Nicotine Polacrilex Lozenge 4 MG LOZENGE BUCCAL (20:07)
[2025-02-11] MEDS: Nicotine Polacrilex Lozenge 4 MG LOZENGE BUCCAL ×4 (05:42→20:10)
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
[2025-02-11 08:00] VITALS: BP 128/84; PULSE 83; RESP 18; TEMP 36.4; O2SAT 97
[2025-02-11] MEDS: Clotrimazole 1 % Cream 15 GM TUBE 1 APPL TOPICAL ×2 (10:41→20:04)
[2025-02-11] MEDS: Nicotine 21 MG PATCH.TD24 TRANSDERMA (10:44)
[2025-02-11 19:54] VITALS: RESP 15
[2025-02-12] MEDS: Nicotine Polacrilex Lozenge 4 MG LOZENGE BUCCAL ×2 (04:57→10:49)
[2025-02-12] MEDS: Nicotine 21 MG PATCH.TD24 TRANSDERMA (06:17)
[2025-02-12 08:00] VITALS: BP 141/80; PULSE 90; RESP 15; O2SAT 97
[2025-02-12] MEDS: Clotrimazole 1 % Cream 15 GM TUBE 1 APPL TOPICAL (08:18)
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
== END 2025-02-12 11:45 | disposition home or self-care (01) | DRG 885 ==
PROVIDERS: Admitting Provider Psychiatry & Neurology Psychiatry; Visit Provider Psychiatry & Neurology Psychiatry
DX: F25.9 Schizoaffective disorder, unspecified (principal); Z59.02 Unsheltered homelessness; B35.1 Tinea unguium; F17.210 Nicotine dependence, cigarettes, uncomplicated; Z71.6 Tobacco abuse counseling; M25.562 Pain in left knee; G89.29 Other chronic pain; Z91.148 Patient's other noncompliance with medication regimen for other reason; Z79.899 Other long term (current) drug therapy
CPT/HCPCS: 36415; 80053; 80061; 83036; 84443

== ENCOUNTER → 2025-02-06 16:34 | Outpatient (BNV) | payer OTHER, SELFPAY | PROVIDERS: Admitting Provider Psychiatry & Neurology Psychiatry; Visit Provider Nurse Practitioner Family | DX: F25.9 Schizoaffective disorder, unspecified (principal); F41.9 Anxiety disorder, unspecified; M25.562 Pain in left knee; G89.29 Other chronic pain | CPT/HCPCS: 90792; 99232 ==

== ENCOUNTER → 2025-02-06 16:34 | Outpatient (BNV) | payer MEDICARE, SELFPAY | PROVIDERS: Admitting Provider Psychiatry & Neurology Psychiatry; Visit Provider Nurse Practitioner Family | DX: B35.1 Tinea unguium (principal) | CPT/HCPCS: 99221 ==